=== PATIENT | female | born 2000 | race African-American/Black ===

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

== ENCOUNTER 2020-01-25 12:10 | Observation (INO) | payer OTHER, SELFPAY ==
[2020-01-25] VITALS (12 sets, daily range): BP systolic 88–107; BP diastolic 51–77; PULSE 80–110; RESP 14–18; TEMP 36.5–36.6; O2SAT 100; BMI 27.0
--- NOTE | 2020-01-25 13:24 | ED.BACK ---
HPI - Back Pain/Injury General Chief Complaint: Back Pain/Injury <Amairani Gilbert PA-C - Last Filed: 01/25/20 13:29> Stated Complaint: back pain <TONY Mcdonald Last Filed: 01/25/20 13:29> Time Seen by Provider: 01/25/20 12:30 <TONY Mcdonald Last Filed: 01/25/20 13:29> Source: patient <TONY Mcdonald Last Filed: 01/25/20 13:29> Mode of arrival: ambulatory <TONY Mcdonald Last Filed: 01/25/20 13:29> Limitations: no limitations <TONY Mcdonald Last Filed: 01/25/20 13:29> History of Present Illness HPI Narrative: This is a 19-year-old G1, P0 that is 21 weeks that presents to the emergency department for low back pain. Reports it has been intermittent in nature over the last week. Associated with pelvic cramping. Reports the pain in her back has been constant since last night. Has history of low-lying placenta and has been having cervical changes. She did have an ultrasound 5 days ago which showed that her cervix was stable. She has been taking progesterone. Denies fever, nausea, vomiting, vaginal bleeding, or dysuria. <TONY Mcdonald Last Filed: 01/25/20 13:29> Related Data Home Medications: Home Medications Medication Instructions Recorded Confirmed [id number] 250 1 tablet PO Q4-6H PRN 12/31/19 mg-250 mg-65 mg tablet <TONY Mcdonald Last Filed: 01/25/20 13:29> Allergies/Adverse Reactions: Allergies Allergy/AdvReac Type Severity Reaction Status Date / Time shellfish derived Allergy Unknown unknown Verified 01/25/20 12:19 <TONY Mcdonald Last Filed: 01/25/20 13:29> Review of Systems Review of Systems: Narrative: CONSTITUTIONAL: Denies fever GASTROINTESTINAL: Denies abdominal pain, nausea, vomiting GENITOURINARY: Denies dysuria or hematuria. MUSCULOSKELETAL: Reports back pain <Amairani Gilbert PA-C - Last Filed: 01/25/20 13:29> All systems reviewed & are unremarkable except as noted in HPI and below <Amairani Gilbert PA-C - Last Filed: 01/25/20 13:29> PMFSH Surgical History Surgical History: Surgical History No pertinent past surgical history <Amairani Gilbert PA-C - Last Filed: 01/25/20 13:29> Social History Social History: Social History Smoking status: Never smoker Alcohol intake: never Substance use: current Substance use type: marijuana Gender identity (if verbalized by the patient): Female <TONY Mcdonald Last Filed: 01/25/20 13:29> Exam Narrative: Exam Narrative: GENERAL: Well-appearing, well-nourished, and in no acute distress. HEAD: Normocephalic, atraumatic. EYES: EOMI. CHEST: Clear to auscultation. No respiratory distress. No wheezes rales or rhonchi HEART: Regular rate and rhythm. No murmur heard. Normal peripheral pulses. ABDOMEN: Gravid, nontender, normal active bowel sounds. EXTREMITIES: Normal range of motion. No edema. SKIN: Warm, dry, no rash. NEURO: No focal deficits. Alert and oriented x3. PSYCH: Normal mood and affect <Amairani Gilbert PA-C - Last Filed: 01/25/20 13:29> Course Vital Signs Vital signs: Vital Signs Temperature 36.5 C 01/25/20 12:16 Pulse Rate 87 01/25/20 12:16 Respiratory Rate 14 01/25/20 12:16 Blood Pressure 107/60 01/25/20 12:16 Pulse Oximetry 100 01/25/20 12:16 Temperature 36.5 C 01/25/20 12:16 Pulse Rate 100 01/25/20 14:45 Respiratory Rate 14 01/25/20 12:16 Blood Pressure 88/51 L 01/25/20 14:45 Pulse Oximetry 100 01/25/20 12:16 <TONY Mcdonald Last Filed: 01/25/20 13:29> Vital Signs Temperature 36.5 C 01/25/20 12:16 Pulse Rate 87 01/25/20 12:16 Respiratory Rate 14 01/25/20 12:16 Blood Pressure 107/60 01/25/20 12:16 Pulse Oximetry 100 01/25/20 12:16 Temperature 36.
[2020-01-25 15:04] LABS: Add Urine Microscopic? YES; Appearance Urine Cloudy (Clear); Bacteria Urine 1+ /hpf; Bilirubin Urine Negative (Negative); Blood Urine Negative (Negative); Color Urine Yellow (Yellow); Glucose Urine UA Negative (Negative); Ketones Urine 2+ mg/dL (Negative); Leukocyte Esterase Ur 3+ LEU/UL (NEGATIVE); Mucus Urine Rare /lpf; Nitrate Urine Positive (Negative); Protein Urine 1+ mg/dL (Negative); Specific Grav Ur 1.016 (1.001-1.035); Squamous Epithelial Cell Urine Occasional /hpf (Few); Urobilinogen Urine Negative mg/dL (<2.0); WBC Urine >75 /hpf (0-3)
[2020-01-25] MEDS: cefTRIAXone 1 GM VIAL IM (16:43)
[2020-01-25] MEDS: LIDOCAINE HCL 1% LOCAL INJ 20 ML VIAL 2.1 ML XX (16:43)
--- NOTE | 2020-01-27 09:10 | PM.OBTRLD ---
OB - Triage/Final Diagnosis Evaluation Laboratory results: Laboratory Tests 01/25/20 14:40 Urine Color Yellow Urine Appearance Cloudy H Urine pH 6.0 Ur Specific [place] 1.016 Urine Protein 1+ H Urine Glucose (UA) Negative Urine Ketones 2+ H Ur Blood (Man) Negative Urine Nitrate Positive Urine Bilirubin Negative Urine Urobilinogen Negative Ur Leukocyte Esterase 3+ H Urine RBC 3-5 H Urine WBC >75 H Ur Squamous Epith Cells Occasional Urine Bacteria 1+ H Urine Mucus Rare Final Diagnosis (1) UTI in : Code(s): O23.40 - Unspecified infection of urinary tract in , unspecified trimester Status: Acute
== END 2020-01-25 16:45 | disposition home or self-care (01) ==
LOC: ANHED 12:30 → ANHOBPP 14:39
PROVIDERS: Admitting Provider Student in an Organized Health Care Education/Training Program; Emergency Provider Emergency Medicine; PCP Student in an Organized Health Care Education/Training Program; Visit Provider Obstetrics & Gynecology
DX: O23.42 Unspecified infection of urinary tract in pregnancy, second trimester (principal); O99.89 Other specified diseases and conditions complicating pregnancy, childbirth and the puerperium; M54.9 Dorsalgia, unspecified; Z3A.21 21 weeks gestation of pregnancy
CPT/HCPCS: 81001; 87077; 87086; 87088; 87186; 96372; 99285; G0378; G0379; J0696

== ENCOUNTER 2020-03-08 13:09 | Outpatient (CLI) | payer OTHER, SELFPAY ==
[2020-03-08 13:36] LABS: Basophils Absolute Auto 0.1 K/mm3 (0.0-0.1); Basophils Percent Auto 0.8 % (0.2-1.2); Eosinophils Absolute Auto 0.1 K/mm3 (0-0.3); Eosinophils Percent Auto 1.3 % (0-4.4); Hematocrit 30.7 % (37.0-47.0); Hemoglobin 9.8 g/dL (12.0-15.0); Immature Granulocyte Absolute 0.19 K/mm3 (0.00-0.031); Immature Granulocyte Percent A 1.8 % (0-0.5); Lymphocytes Absolute Auto 1.74 K/mm3 (0.9-3.2); Lymphocytes Percent Auto 16.6 % (18.3-44.2); Mean Corpuscular HGB Conc 31.9 g/dl (32-36); Mean Corpuscular Hemoglobin 28.1 pg (26-34); Mean Platelet Volume 8.8 fl (7.4-10.4); Monocytes Absolute Auto 0.9 K/mm3 (0.1-0.6); Monocytes Percent Auto 8.1 % (2.6-8.5); Neutrophils Absolute Auto 7.5 K/mm3 (1.3-6.7); Neutrophils Percent Auto 71.4 % (45.5-73.1); Platelet Count Result 286 k/mm3 (150-375); Red Blood Count 3.49 M/mm3 (4.2-5.4); Red Cell Distribution Width 14.7 % (11.5-14.5); White Blood Count 10.5 K/mm3 (4.5-10.0)
[2020-03-08 14:32] LABS: Vitamin D 25 Hydroxy 21.7 ng/mL
[2020-03-08 15:04] LABS: Hepatitis C Virus Antibody Negative (Negative)
[2020-03-08 15:13] LABS: Glucose 1 Hour PP 50gm Dose 76 mg/dL
== END 2020-03-08 13:10 | disposition home or self-care (01) ==
LOC: ANHLAB 13:10
PROVIDERS: PCP Student in an Organized Health Care Education/Training Program; Visit Provider Student in an Organized Health Care Education/Training Program
DX: Z34.02 Encounter for supervision of normal first pregnancy, second trimester (principal); Z3A.00 Weeks of gestation of pregnancy not specified
CPT/HCPCS: 36415; 82306; 82947; 85025; 86803

== ENCOUNTER 2020-03-20 05:08 | Emergency (ER) | payer OTHER, SELFPAY ==
[2020-03-20 05:21] VITALS: BP 120/77; PULSE 82; RESP 18; TEMP 36.1; O2SAT 100
--- NOTE | 2020-03-20 05:44 | ED.NAVMDI ---
HPI - Nausea/Vomiting/Diarrhea General Chief complaint: Nausea/Vomiting/Diarrhea Stated complaint: vomiting, back pain, 29 weeks preg Time Seen by Provider: 03/20/20 05:24 Source: patient Mode of arrival: ambulatory Limitations: no limitations History of Present Illness HPI Narrative: This patient is a 19 year old female 29 weeks GA who presents for evaluation of nausea and vomiting. She reports she ate chicken and broccoli at 10 30 pm. Around midnight reports she had a sensation that some thing was stuck in her esophagus, so she drank some water. She reports at 3 am she developed nausea and vomiting. She reports initially she had emesis with food. Shortly afterward, her emesis was brown so she came to the ER. This occurred at 3 am. She states she drank some water . She denies abdominal pain, fever or chills. She denies any vaginal bleeding. She does reports having an issue with heart burn throughout her HEr OBGYN is Dr. Zhao. Related Data Home Medications Medication Instructions Recorded Confirmed [id number] 250 1 tablet PO Q4-6H PRN 12/31/19 mg-250 mg-65 mg tablet Allergies Allergy/AdvReac Type Severity Reaction Status Date / Time shellfish derived Allergy Unknown unknown Verified 03/08/20 12:49 Review of Systems Review of Systems: All systems reviewed & are unremarkable except as noted in HPI and below Constitutional: Constitutional: Denies chills and Denies fever(s) Cardiovascular: Cardiovascular: Denies chest pain Respiratory: Respiratory: Denies dyspnea Gastrointestinal: Gastrointestinal: Denies abdominal pain, Denies constipation, Denies diarrhea, Reports nausea and Reports vomiting Genitourinary: Genitourinary: Denies hematuria, Denies dysuria and Reports flank pain PMFSH Past Medical History Medical History Asthma Healthy female adult UTI in Surgical History Surgical History No pertinent past surgical history Social History Social History Smoking status: Never smoker Alcohol intake: never Substance use: current Substance use type: marijuana Gender identity (if verbalized by the patient): Female Exam Const: General: no acute distress and alert Orientation/consciousness: patient oriented x3 HENMT: Face and sinus: face symmetric Chest: Chest palpation & inspection: normal inspection of the chest Resp: Effort & Inspection: normal respiratory effort and no retractions Auscultation: clear to auscultation bilaterally Cardio: Rate: regular rate Rhythm: regular rhythm Heart sounds: no murmurs GI: GI Palp: Yes Soft to palpation, No Tenderness to palpation present (GI), No Guarding due to palpation present (GI) and No Rigid due to palpation Other: gravid Skin: General skin exam: normal color Rashes: no rashes Neuro: General: patient oriented x3 and moves all extremities Course Reevaluation(s) Reevaluation #1: PAtient states she does not have nausea any more. She is able to drink without nausea now. I discussed return precautions. She will starting taking omeprazole as recommended by Dr. Suero Date: 03/20/20 Time: 06:47 Consultations Consultation #1: I Discussed case with DR. Suero. She agrees patient can be discharge home. I Discussed had episode of coffee ground emesis that has resolved. She states patient can take OTC omeprazole. Date: 03/20/20 Time: 06:20 Vital Signs Vital signs: Vital Signs Temperature 97 F L 03/20/20 05:21 Pulse Rate 82 03/20/20 05:21 Respiratory Rate 18 03/20/20 05:21 Blood Pressure 120/77 03/20/20 05:21 Pulse Oximetry 100 03/20/20 05:21 Temperature 97 F L 03/20/20 05:21 Pulse Rate 80 03/20/20 06:10 Respiratory Rate 16 03/20/20 06:10 Blood Pressure 119/75 03/20/20 06:10 Pulse Oximetr
[2020-03-20] MEDS: PANTOPRAZOLE SODIUM IV 40 MG VIAL IV PUSH (05:55)
[2020-03-20] MEDS: ONDANSETRON INJ 4 MG/2 ML VIAL IV PUSH (05:55)
[2020-03-20 06:10] VITALS: BP 119/75; PULSE 80; RESP 16; O2SAT 99
[2020-03-20 06:19] LABS: Basophils Absolute Auto 0.1 K/mm3 (0.0-0.1); Basophils Percent Auto 0.9 % (0.2-1.2); Eosinophils Absolute Auto 0.2 K/mm3 (0-0.3); Eosinophils Percent Auto 1.4 % (0-4.4); Hematocrit 30.7 % (37.0-47.0); Hemoglobin 10.1 g/dL (12.0-15.0); Immature Granulocyte Percent A 1.7 % (0-0.5); Lymphocytes Absolute Auto 2.27 K/mm3 (0.9-3.2); Lymphocytes Percent Auto 19.4 % (18.3-44.2); Mean Corpuscular HGB Conc 32.9 g/dl (32-36); Mean Corpuscular Hemoglobin 28.9 pg (26-34); Mean Platelet Volume 9.1 fl (7.4-10.4); Monocytes Absolute Auto 0.8 K/mm3 (0.1-0.6); Monocytes Percent Auto 7.2 % (2.6-8.5); Neutrophils Absolute Auto 8.2 K/mm3 (1.3-6.7); Neutrophils Percent Auto 69.4 % (45.5-73.1); Platelet Count Result 279 k/mm3 (150-375); Red Blood Count 3.49 M/mm3 (4.2-5.4); Red Cell Distribution Width 14.8 % (11.5-14.5); White Blood Count 11.7 K/mm3 (4.5-10.0)
[2020-03-20 06:23] LABS: Add Urine Microscopic? YES; Appearance Urine Clear (Clear); Bacteria Urine Trace /hpf; Bilirubin Urine Negative (Negative); Blood Urine Negative (Negative); Color Urine Yellow (Yellow); Glucose Urine UA Negative (Negative); Ketones Urine Negative (Negative); Leukocyte Esterase Ur Trace LEU/UL (Negative); Mucus Urine Rare /lpf; Nitrate Urine Negative (Negative); Protein Urine Negative (Negative); RBC Urine 0-2 /hpf (0-2); Specific Grav Ur 1.017 (1.001-1.035); Squamous Epithelial Cell Urine Few /hpf (Few); Urobilinogen Urine Negative mg/dL (<2.0)
[2020-03-20 06:31] LABS: Alanine Aminotransferase 19 U/L (4-35); Albumin Level 3.7 g/dL (3.7-5.6); Alkaline Phosphatase 88 U/L (45-116); Anion Gap 6 mmol/L (8-16); Aspartate Amino Transferase 24 U/L (14-36); Bilirubin,Total 0.1 mg/dL (0.2-1.3); Blood Urea Nitrogen 8 mg/dL (8-21); Calcium 9.1 mg/dL (8.9-10.7); Carbon Dioxide 27 mmol/L (22-30); Chloride 105 mmol/L (98-107); Estimated CRCL calculation 129 ml/min; Estimated Glomerular Filt Rate > 60; Glucose 77 mg/dL (65-105); Potassium 3.8 mmol/L (3.4-5.0); Sodium 138 mmol/L (134-143)
[2020-03-20 07:08] VITALS: BP 127/77; PULSE 82; RESP 16; O2SAT 99
== END 2020-03-20 07:10 | disposition home or self-care (01) ==
PROVIDERS: Emergency Provider General Practice; PCP Student in an Organized Health Care Education/Training Program
DX: O21.2 Late vomiting of pregnancy (principal); Z3A.29 29 weeks gestation of pregnancy
CPT/HCPCS: 36415; 80048; 80076; 81001; 85025; 96374; 96375; 99284; C9113; J2405

== ENCOUNTER 2020-04-08 14:03 | Outpatient (CLI) | payer OTHER, SELFPAY ==
[2020-04-08 14:42] LABS: Basophils Absolute Auto 0.1 K/mm3 (0.0-0.1); Basophils Percent Auto 0.7 % (0.2-1.2); Eosinophils Absolute Auto 0.2 K/mm3 (0-0.3); Eosinophils Percent Auto 1.3 % (0-4.4); Hematocrit 32.1 % (37.0-47.0); Hemoglobin 10.2 g/dL (12.0-15.0); Immature Granulocyte Absolute 0.22 K/mm3 (0.00-0.031); Lymphocytes Percent Auto 17.8 % (18.3-44.2); Mean Corpuscular HGB Conc 31.8 g/dl (32-36); Mean Corpuscular Hemoglobin 28.3 pg (26-34); Mean Corpuscular Volume 89.2 fl (80-100); Mean Platelet Volume 8.6 fl (7.4-10.4); Monocytes Absolute Auto 0.9 K/mm3 (0.1-0.6); Monocytes Percent Auto 7.8 % (2.6-8.5); Neutrophils Absolute Auto 7.9 K/mm3 (1.3-6.7); Neutrophils Percent Auto 70.4 % (45.5-73.1); Platelet Count Result 266 k/mm3 (150-375); Red Cell Distribution Width 14.9 % (11.5-14.5); White Blood Count 11.3 K/mm3 (4.5-10.0)
[2020-04-08 15:38] LABS: HIV 1/2 Ab P24 Ag Result Negative (Negative)
[2020-04-11 11:55] LABS: Rapid Plasma Reagin Non-Reactive (NonReactive)
== END 2020-04-08 14:04 | disposition home or self-care (01) ==
LOC: ANHLAB 14:05
PROVIDERS: PCP Student in an Organized Health Care Education/Training Program; Visit Provider Student in an Organized Health Care Education/Training Program
DX: Z34.03 Encounter for supervision of normal first pregnancy, third trimester (principal)
CPT/HCPCS: 36415; 85025; 86592; 86703; G0432

== ENCOUNTER 2020-05-19 15:24 | Inpatient (IN) | payer OTHER, SELFPAY ==
[2020-05-19] VITALS (80 sets, daily range): BP systolic 96–174; BP diastolic 38–142; PULSE 25–214; TEMP 36.4–36.5; O2SAT 65–100; BMI 30.2
--- NOTE | 2020-05-19 16:28 | LDADM ---
This patient, Alon Deluna, was admitted to Labor/Delivery/Recovery [facility] on 05/19/20 at 15:24. Plans for labor, pain management and were discussed with patient. Patient/family oriented to hospital policies and general routines including ID bracelet, bed and alarms, visiting hours, pain management, procedures, bathroom and other care routines, personal items, smoking policy, room service/diet and guest tray routines, security routines, call light, and visiting hours. Patient/Family are encouraged to report perceived risks to care and to ask questions if they do not understand what they are told or what they should do. See [facility] for further documentation.
[2020-05-19] MEDS: LACTATED RINGERS 1,000 ML 125 ML IV CONT ×2 (16:53→20:00)
[2020-05-19] MEDS: AMPICILLIN 2 GM/NS 100 ML 2 GM/100 ML BAG IVPB (16:54)
[2020-05-19 16:56] LABS: Basophils Absolute Auto 0.1 K/mm3 (0.0-0.1); Basophils Percent Auto 0.7 % (0.2-1.2); Eosinophils Absolute Auto 0.1 K/mm3 (0-0.3); Eosinophils Percent Auto 1.2 % (0-4.4); Hematocrit 33.3 % (37.0-47.0); Hemoglobin 10.8 g/dL (12.0-15.0); Immature Granulocyte Percent A 0.8 % (0-0.5); Immature Platelet Fraction Pct 3.2 % (0.9-11.2); Lymphocytes Absolute Auto 1.63 K/mm3 (0.9-3.2); Lymphocytes Percent Auto 13.4 % (18.3-44.2); Mean Corpuscular HGB Conc 32.4 g/dl (32-36); Mean Corpuscular Hemoglobin 28.2 pg (26-34); Mean Corpuscular Volume 86.9 fl (80-100); Mean Platelet Volume 10.6 fl (7.4-10.4); Monocytes Absolute Auto 0.9 K/mm3 (0.1-0.6); Monocytes Percent Auto 7.6 % (2.6-8.5); Neutrophils Absolute Auto 9.3 K/mm3 (1.3-6.7); Neutrophils Percent Auto 76.3 % (45.5-73.1); Platelet Count Result 267 k/mm3 (150-375); Red Blood Count 3.83 M/mm3 (4.2-5.4); Red Cell Distribution Width 14.9 % (11.5-14.5); White Blood Count 12.2 K/mm3 (4.5-10.0)
--- NOTE | 2020-05-19 17:29 | PM.IMHP ---
H&P: HPI History of Present Illness Date/Time: 05/19/20 17:29 The patient is a 20-year-old with LMP 08/27/19. She is currently 38w gestation with an SAMIA 06/02/20. Patient is dated by an US on 10/23/19 at 8w4d. At approximately 2:30 p.m., patient noticed leakage of fluid. She reports onset of contractions following leakage of fluid. She presented to Labor and delivery for further evaluation and was noted to be grossly ruptured, clear fluid noted. Cervical exam at presentation was approximately 1-80/-3. Patient denies any vaginal bleeding and reports good movement. Chief complaint: labor Narrative: Alon Deluna is a 20 year old female Review of Systems Review of Systems: All systems reviewed & are unremarkable except as noted in HPI and below Constitutional: Constitutional: Reports as per HPI, Reports no additional constitutional complaints, Denies chills, Denies fever(s), Denies headache(s) and Denies night sweats Eyes: Eyes: Reports as per HPI and Reports no additional eye complaints ENT: Reports system reviewed and no additional complaints, except as documented, Reports as per HPI, Reports Normal hearing present and Denies headache(s) Cardiovascular: Cardiovascular: Reports as per HPI, Reports no additional cardiovascular complaints, Denies chest pain and Denies dyspnea Respiratory: Respiratory: Reports as per HPI, Reports no additional respiratory complaints, Denies cough and Denies dyspnea Gastrointestinal: Gastrointestinal: Reports as per HPI, Reports no additional gastrointestinal complaints, Denies abdominal pain, Denies change in bowel habits, Denies change in stool character, Denies nausea and Denies vomiting Genitourinary: Genitourinary: Reports no additional female genitourinary complaints, Reports as per HPI, Denies abnormal vaginal bleeding, Denies genital lesions, Denies hot flashes, Denies dyspareunia, Denies pelvic pain, Denies sexual dysfunction, Denies urinary incontinence, Denies vaginal discharge, Denies vaginal dryness and Denies vaginal odor Musculoskeletal: Musculoskeletal: Reports no additional musculoskeletal complaints and Reports as per HPI Integumentary/Breasts: Skin/Breast: Reports system reviewed and no additional complaints, except as docu, Reports as per HPI, Denies breast pain and Denies nipple discharge Neurologic: Reports system reviewed and no additional complaints, except as documented, Reports as per HPI, Reports Normal hearing present and Denies headache(s) Psychiatric: Psychiatric: Reports no additional psychiatric complaints, Reports as per HPI, Denies anxiety and Denies depression Endocrine: Endocrine: Reports no additional endocrine complaints and Reports as per HPI Hematologic/Lymphatic: Hematologic/Lymphatic: Reports no additional hematologic/lymphatic complaints and Reports as per HPI Allergic/Immunologic: Allergic/Immunologic: Reports no additional allergic/immunologic complaints and Reports as per HPI PMFSH Past Medical History Medical History (Updated 05/19/20 @ 17:35 by Roseann Zhao MD) Asthma Healthy female adult UTI in Surgical History Surgical History No pertinent past surgical history Social History Social History Smoking status: Never smoker Alcohol intake: never Substance use: never Substance use type: marijuana Gender identity (if verbalized by the patient): Female Spiritual care concerns: No Meds Home Medications and Allergies Home Medications Medication Instructions Recorded Confirmed Type jdseyqa-xgdawdibzggdm-nejiypmf 250 1 tablet PO Q4-6H PRN 12/31/19 History mg-250 mg-65 mg tablet phzyzokwhe-bpqjsylrcztef-pbtqaxok 1 cap PO Q8H PRN #20 cap 12/31/19 12/31/19 Rx 50 mg-300 mg-40 mg capsule nitrofurantoin monohyd/m-cryst 100 mg PO Q12H #14 cap 01/25/20 Rx [Macrobid] sulfamethoxazole 800 1 tablet PO Q
--- NOTE | 2020-05-19 17:36 | WPDHPUPDATE1 ---
History and Physical Update Update Date/Time: 05/19/20 17:36 History and Physical has been reviewed, including an updated exam of the patient. There are NO changes in the patient's condition. Risks, benefits, and alternatives have been discussed and questions answered. Patient agrees to proceed with procedure.
[2020-05-19] MEDS: fentaNYL CITRATE INJ (*CRX) 100 MCG/2 ML VIAL IV PUSH (18:12)
--- NOTE | 2020-05-19 19:26 | WPDANESEPPF ---
Anes - Initial Pre Proc Eval Procedure: labor epidural Date/Time: 05/19/20 19:26 Surgeon: Ben Kebede MD Pre Op Diagnosis: labor pain Pre Op Diagnosis: labor Patient Data Age: 20 Gender: F Height: 1.7 m Weight: 87.6 kg Last Vital Signs Temp 36.4 C 05/19/20 16:58 Pulse 89 05/19/20 19:25 BP 114/66 05/19/20 19:25 Pulse Ox 100 05/19/20 19:24 Allergies Allergy/AdvReac Type Severity Reaction Status Date / Time shellfish derived Allergy Unknown unknown Verified 05/19/20 18:14 Home Medications Medication Instructions Recorded Confirmed Type kzshmtx-cofywrgvhhuwy-hxprhddm 250 1 tablet PO Q4-6H PRN 12/31/19 05/19/20 History mg-250 mg-65 mg tablet nsrwyhlbod-jhnaetocrgyhh-redthjds 1 cap PO Q8H PRN #20 cap 12/31/19 05/19/20 Rx 50 mg-300 mg-40 mg capsule omeprazole 20 mg PO BID #30 tablet 03/20/20 05/19/20 Rx vitamin with calcium See Rx Instructions .ROUTE 04/04/20 05/19/20 Rx no.72-iron 27 mg-folic acid 1 mg .COMPLEX #30 tablet tablet cholecalciferol (vitamin D3) 50 See Rx Instructions .ROUTE 05/04/20 05/19/20 Rx mcg (2,000 unit) capsule .COMPLEX #30 cap ferrous sulfate 325 mg (65 mg See Rx Instructions .ROUTE 05/04/20 05/19/20 Rx iron) tablet .COMPLEX #60 tablet Laboratory Tests 05/19/20 05/19/20 05/19/20 16:46 16:46 16:46 WBC 12.2 K/mm3 H K/mm3 (4.5-10.0) RBC 3.83 M/mm3 L M/mm3 (4.2-5.4) Hgb 10.8 g/dL L g/dL (12.0-15.0) Hct 33.3 % L % (37.0-47.0) MCV 86.9 fl fl (80-100) MCH 28.2 pg pg (26-34) MCHC 32.4 g/dl g/dl (32-36) RDW 14.9 % H % (11.5-14.5) Plt Count 267 k/mm3 k/mm3 (150-375) MPV 10.6 fl H fl (7.4-10.4) Immature Gran % (Auto) 0.8 % H % (0-0.5) Neut % (Auto) 76.3 % H % (45.5-73.1) Lymph % (Auto) 13.4 % L % (18.3-44.2) [place] % (Auto) 7.6 % % (2.6-8.5) Eos % (Auto) 1.2 % % (0-4.4) Baso % (Auto) 0.7 % % (0.2-1.2) Lymph # (Auto) 1.63 K/mm3 K/mm3 (0.9-3.2) [place] # (Auto) 0.9 K/mm3 H K/mm3 (0.1-0.6) Eos # (Auto) 0.1 K/mm3 K/mm3 (0-0.3) Baso # (Auto) 0.1 K/mm3 K/mm3 (0.0-0.1) Abs Immat Gran (auto) 0.10 K/mm3 H K/mm3 (0.00-0.031) Absolute Neuts (auto) 9.3 K/mm3 H K/mm3 (1.3-6.7) Absolute Nucleated RBC 0.0 K/mm3 K/mm3 (0.0-0.012) Nucleated RBC % 0.0 % % (0.0-0.2) % Immature Plt Fraction 3.2 % % (0.9-11.2) RPR Pending Hep Bs Antigen Rubella IgG Antibody Pending Blood Type Antibody Screen 05/19/20 05/19/20 16:46 17:34 WBC RBC Hgb Hct MCV MCH MCHC RDW Plt Count MPV Immature Gran % (Auto) Neut % (Auto) Lymph % (Auto) [place] % (Auto) Eos % (Auto) Baso % (Auto) Lymph # (Auto) [place] # (Auto) Eos # (Auto) Baso # (Auto) Abs Immat Gran (auto) Absolute Neuts (auto) Absolute Nucleated RBC Nucleated RBC % % Immature Plt Fraction RPR Hep Bs Antigen Pending Rubella IgG Antibody Blood Type A Positive Antibody Screen Negative Patient hx anesthesia problems: none Family hx anesthesia problems: none PMFSH Past Medical History Medical History (Updated 05/19/20 @ 17:35 by Roseann Zhao MD) Asthma Healthy female adult UTI in Surgical History Surgical History No pertinent past surgical history Social History Social History Smoking status: Never smoker Alcohol intake: never Substance use: never Substance use type:
[2020-05-19 20:00] LABS: Hepatitis B Surface Antigen Negative (Negative)
[2020-05-19 20:15] LABS: Rubella IgG Antibody > 120.0 IU/ML
[2020-05-19] MEDS: OXYTOCIN 30 UNITS/NS 500 ML 30 UNITS/500 ML BAG 999 UNITS IV CONT (20:19)
[2020-05-19] MEDS: OXYTOCIN 30 UNITS/NS 500 ML 30 UNITS/500 ML BAG 125 UNITS IV CONT (20:51)
--- NOTE | 2020-05-19 21:28 | P.PCNOB_ITS ---
OB - Delivery Note Procedure Delivery date: 05/19/20 Procedure: The patient is a 20-year-old now who presented to labor and delivery on the afternoon of 05/19/2020 with complaints of spontaneous rupture of membranes. Patient was noted to be grossly ruptured upon arrival. Clear amniotic fluid was noted. The patient reported onset of contractions shortly after leakage of fluid and progressed spontaneously into active labor on own. Initial cervical exam was approximately 2 cm dilated. The patient was started on ampicillin for GBS prophylaxis. She continued to make progressive cervical change. She became uncomfortable and requested an epidural for pain management, which was placed without difficulty. Patient was noted to be fully dilated at 7:40 p.m. She was encouraged to push and found to be pushing well. Patient was prepped and draped for delivery. At 8:16 p.m., head was delivered atraumatically and without difficulty in ALEX presentation. A compound presentation was noted as an infant hand delivered alongside the left side of face. Occiput restituted to maternal right side. With subsequent push, the infant's neck, shoulders, and rest of body delivered without difficulty. The infant was crying spontaneously. Infant's nose and mouth were suctioned bulb suction. The infant was placed on maternal abdomen and care was assumed by awaiting nursing staff. Delayed cord clamping was performed for approximately 45 seconds. The cord was clamped and cut. A segment of cord was collected for cord gases. Brisk bleeding was noted and the placenta was delivered prior to collection of cord blood. Placenta was delivered spontaneously and intact. Profuse bleeding ensued. Uterine fundus was noted to be firm with bimanual massage. Bleeding was thought to be due to lacerations, however, visualization was limited. When adequate visualization was achieved, multiple blood vessels were noted to be briskly bleeding from the superior vaginal wall, bilateral periurethral area extending to bilateral labia, as well as perineum (1st degree). Hemostasis was eventually achieved with 2-0 and 3-0 Vicryl. Straight catheterization was performed and clear urine was noted. Estimated blood loss for entire delivery was 1683 cc. was a live-born male , apgars 9 and 9, weighing 6 lb 10 oz. Patient doing well after delivery, however, close monitoring of patient to continue. Intrapartal events: Bleeding Delivery monitor: external FHT and external uterine Route of delivery: Laceration Description: Periurethral (bilateral), Perineal - 1st Degree, Vaginal - 1st Degree (superior vaginal wall) and Labial (bilateral) Delivery repair: vicryl (2-0 and 3-0 vicryl) Specimen: No Quantitative Blood Loss: 1,683 Anesthesia type: Epidural Disposition: floor Complications: hemorrhage [place] Baby Date of : 05/19/20 Time of : 20:16 Weeks of gestation at delivery: 38 gender: Male Weight (pounds): 6 Weight (ounces): 10 presentation: compound ( hand delivered alongside face) position: Right Occiput Anterior Placenta delivery description: Spontaneous cord vessel description: 3 Vessels, Clamped/Cut and Delayed Cord Clamping (approx. 45 sec.) score one minute: 9 score five minutes: 9
[2020-05-19] MEDS: BENZOCAINE 20% AER SPR (*SP) 56 GM CAN 1 SPRAY TOPICAL (23:38)
[2020-05-19] MEDS: IBUPROFEN 600 MG TABLET PO (23:38)
[2020-05-19] MEDS: WITCH HAZEL 40 PADS 1 PAD TOPICAL (23:38)
[2020-05-20 00:25] VITALS: BP 106/61; PULSE 97; RESP 16; TEMP 36.8; O2SAT 99
--- NOTE | 2020-05-20 00:25 | OBPPTRN ---
Patient transferred to post room #292 via wheelchair. Support person present. Oriented to unit, room, information board, rooming in, admission packet and security measures. Patient verbalizes understanding.
[2020-05-20] MEDS: ACETAMINOPHEN 325 MG TABLET 650 MG PO ×4 (02:03→21:13)
[2020-05-20 02:10] LABS: Hematocrit 25.7 % (37.0-47.0); Hemoglobin 8.4 g/dL (12.0-15.0); Mean Corpuscular HGB Conc 32.7 g/dl (32-36); Mean Corpuscular Hemoglobin 28.4 pg (26-34); Mean Corpuscular Volume 86.8 fl (80-100); Mean Platelet Volume 9.1 fl (7.4-10.4); Platelet Count Result 232 k/mm3 (150-375); Red Blood Count 2.96 M/mm3 (4.2-5.4); Red Cell Distribution Width 14.6 % (11.5-14.5); White Blood Count 18.2 K/mm3 (4.5-10.0)
[2020-05-20] MEDS: IBUPROFEN 600 MG TABLET PO ×4 (05:09→21:13)
[2020-05-20 05:33] LABS: Hematocrit 23.6 % (37.0-47.0); Hemoglobin 7.7 g/dL (12.0-15.0)
[2020-05-20 06:51] LABS: Rapid Plasma Reagin Non-Reactive (NonReactive)
--- NOTE | 2020-05-20 07:40 | PC.NURSE ---
PT introductions made and plan of care discussed per post , pain management, breast feeding, daily care activities. PT verbalized understanding of such care.
--- NOTE | 2020-05-20 08:14 | WPDANLDPN2 ---
Anes-Prog Note L&D Date/Time: 05/20/20 08:14 Comfortable throughout: labor and delivery Neuraxial method: epidural Epidural/Spinal procedure site: clean & non-tender Neuro status: Neuro function grossly intact. Cardiovascular status: normal Respiratory status: normal Airway patency: baseline Mental status: baseline Post-Op hydration status: normal Vital Signs: Last Vital Signs Temp 36.8 C 05/20/20 00:25 Pulse 97 05/20/20 00:25 Resp 16 05/20/20 00:25 BP 106/61 05/20/20 00:25 Pulse Ox 99 05/20/20 00:25 Pain score (VAS): 0 I/O: Intake & Output 05/19/20 05/20/20 05/20/20 23:59 07:59 15:59 Intake Total 1600 1400 Output Total 450 800 Balance 1150 600 Post-procedural complaints: none Patient feedback: Patient satisfied with anesthetic care.
[2020-05-20 08:20] VITALS: BP 109/75; PULSE 107; RESP 18; TEMP 37.3; O2SAT 100
--- NOTE | 2020-05-20 09:06 | PM.OBPNVD ---
OB - PN: Subj Subjective Date/time seen: 05/20/20 09:06 Patient doing well this morning. Reports minimal abdominal pain/cramping, alleviated with medication. Also reports mild headache, tolerable. Denies any dizziness, chest pain, shortness of breath, nausea, or vomiting. Tolerating p.o. diet. Minimal lochia. Ambulating without difficulty. Voiding without difficulty. OB - PN: Obj Data Labs CBC & Chem 7: 05/20/20 05:06 Labs: Laboratory Results - last 24 hr 05/19/20 05/19/20 05/19/20 16:46 16:46 16:46 WBC 12.2 H RBC 3.83 L Hgb 10.8 L Hct 33.3 L MCV 86.9 MCH 28.2 MCHC 32.4 RDW 14.9 H Plt Count 267 MPV 10.6 H Immature Gran % (Auto) 0.8 H Neut % (Auto) 76.3 H Lymph % (Auto) 13.4 L [place] % (Auto) 7.6 Eos % (Auto) 1.2 Baso % (Auto) 0.7 Lymph # (Auto) 1.63 [place] # (Auto) 0.9 H Eos # (Auto) 0.1 Baso # (Auto) 0.1 Abs Immat Gran (auto) 0.10 H Absolute Neuts (auto) 9.3 H Absolute Nucleated RBC 0.0 Nucleated RBC % 0.0 % Immature Plt Fraction 3.2 RPR Non-reactive Hep Bs Antigen Rubella IgG Antibody > 120.0 Blood Type Antibody Screen 05/19/20 05/19/20 05/20/20 16:46 17:34 02:01 WBC 18.2 H RBC 2.96 L Hgb 8.4 L Hct 25.7 L MCV 86.8 MCH 28.4 MCHC 32.7 RDW 14.6 H Plt Count 232 MPV 9.1 Immature Gran % (Auto) Neut % (Auto) Lymph % (Auto) [place] % (Auto) Eos % (Auto) Baso % (Auto) Lymph # (Auto) [place] # (Auto) Eos # (Auto) Baso # (Auto) Abs Immat Gran (auto) Absolute Neuts (auto) Absolute Nucleated RBC Nucleated RBC % % Immature Plt Fraction RPR Hep Bs Antigen Negative Rubella IgG Antibody Blood Type A Positive Antibody Screen Negative 05/20/20 05:06 WBC RBC Hgb 7.7 L Hct 23.6 L MCV MCH MCHC RDW Plt Count MPV Immature Gran % (Auto) Neut % (Auto) Lymph % (Auto) [place] % (Auto) Eos % (Auto) Baso % (Auto) Lymph # (Auto) [place] # (Auto) Eos # (Auto) Baso # (Auto) Abs Immat Gran (auto) Absolute Neuts (auto) Absolute Nucleated RBC Nucleated RBC % % Immature Plt Fraction RPR Hep Bs Antigen Rubella IgG Antibody Blood Type Antibody Screen OB - PN A/P Assessment and Plan (1) Normal spontaneous vaginal delivery: Code(s): O80 - Encounter for full-term uncomplicated delivery Status: Acute Assessment and Plan: PPD#1 doing well continue routine care anticipate dc home tomorrow (2) Anemia: Code(s): D64.9 - Anemia, unspecified Status: Acute Assessment and Plan: pt with significant bleeding from lacerations Hgb currently 7.7 pt currently asymptomatic will continue to monitor throughout the day continue iron supplementation Time Spent With Patient Time: Total time spent is greater than 50% in coordination of care (as documented) at patient's floor/unit and/or counseling patient: Exam Const: General: cooperative, healthy appearing, comfortable and no acute distress GI: GI Palp: Yes Soft to palpation and No Tenderness to palpation present (GI) Other: fundus below umbilicus Extrem: Right lower extremity: no edema Left lower extremity: no edema Other: no calf tenderness
[2020-05-20 10:00] VITALS: PULSE 107; RESP 18; O2SAT 100
[2020-05-20] MEDS: POLYSACCHARIDE IRON COMPLEX 150 MG CAPSULE PO ×2 (10:01→15:38)
[2020-05-20] MEDS: DOCUSATE SODIUM 100 MG CAPSULE PO ×2 (10:01→15:38)
[2020-05-20] MEDS: MULTIVIT/MIN/PREN/FOL AC/IRON TABLET 1 TAB PO (10:01)
[2020-05-20] MEDS: PANTOPRAZOLE SOD SESQUIHYDRATE 20 MG TAB PO (11:32)
[2020-05-20] MEDS: LANOLIN (LANSINOH) 7.5 GM CREAM 1 APPLIC TOPICAL (12:08)
--- NOTE | 2020-05-20 13:30 | PC.NURSE ---
Consult with pt., mother states she is resting and request LC return later for assist with feeding and pump use. Requested mother call out when is ready for feeding. Reviewed RN or LC would like to assess infant feeding due to shield use.
--- NOTE | 2020-05-20 15:00 | PC.NURSE ---
Breast pump provided due to ineffective feeding/nipple shield use. Instructions given on breast pump care and usage, pumping schedule, nipple care, and collection and storage of breast milk. Encouraged mjae-oc-hgze, breast massage and manual expression to stimulate supply. Pumping log provided and reviewed. Assessed patient for correct flange size, placement and draw. Patient verbalizes and demonstrates understanding of instructions.
[2020-05-20 18:45] VITALS: BP 110/76; PULSE 85; RESP 18; TEMP 36.7; O2SAT 100
[2020-05-21 07:00] VITALS: BP 124/72; PULSE 84; RESP 16; TEMP 36.9
[2020-05-21] MEDS: DOCUSATE SODIUM 100 MG CAPSULE PO (07:47)
[2020-05-21] MEDS: MULTIVIT/MIN/PREN/FOL AC/IRON TABLET 1 TAB PO (07:47)
[2020-05-21] MEDS: POLYSACCHARIDE IRON COMPLEX 150 MG CAPSULE PO (07:47)
[2020-05-21] MEDS: IBUPROFEN 600 MG TABLET PO (07:47)
--- NOTE | 2020-05-21 12:27 | PM.OBPNVD ---
OB - PN: Subj Subjective Date/time seen: 05/21/20 12:27 Patient comments: no complaints, pain well controlled and other (Lochia similar to menses) [place] baby status: doing well OB - PN: Obj Data Labs CBC & Chem 7: 05/20/20 05:06 OB - PN A/P Plan day: 2 (s/p vaginal delivery, doing well) Plan: routine care, discharge home and other (Follow up in office in 4 weeks) Comments: Anemia - asymptomatic. Lochia similar to menses. Take daily PNV + iron supplement Time Spent With Patient Time: Total time spent is greater than 50% in coordination of care (as documented) at patient's floor/unit and/or counseling patient: Time with patient: less than 15 minutes Exam Const: General: no acute distress GI: Inspection: other (Fundus firm and nontender below umbilicus) GI Palp: Yes Soft to palpation and No Tenderness to palpation present (GI) Extrem: General: no edema
[2020-05-23 10:13] VITALS: BP 130/82; PULSE 72; RESP 20; TEMP 37; O2SAT 100
--- NOTE | 2020-05-27 11:50 | PM.OBDSVD ---
DS: Admitting Diagnosis Admitting Diagnosis Admitting Diagnosis: labor DS: Discharge Diagnosis Discharge Diagnosis (1) Normal spontaneous vaginal delivery: Code(s): O80 - Encounter for full-term uncomplicated delivery Status: Acute OB - DS: Summary OB Procedures : None OB Procedures Intrapartum: Spontaneous Vag Delivery OB Procedures: : None Peripartum Data Infant Delivery Method: Natural Vaginal complications: none Status at Discharge Functional status at discharge: independent ambulation Overall status at discharge: patient is progressing back to baseline Time Spent with Patient Time attestation: Total time spent providing and/or coordinating discharge services: Time spent: Less than 30 minutes Discharge Plan Discharge Attending physician on discharge: Roseann Zhao Consulting providers: Brett Simon Discharging Clinician: Abigail Colbert Patient Disposition: Home, Self-Care Activity: may shower and pelvic rest Diet: regular Discharge Instructions: Education: Mom and Baby Guide Given to: Mother Follow-Up: Call your delivering provider's office for an appointment to be seen in: 1 Week Mom and baby should come to the [facility] for the follow-up appointment. Appointment Date/Time: May 23, 2020 at 10:00 am What to expect at your follow-up visit: Blood Pressure Check Physical Assessment Call [phone] if you are unable to keep your appointment time. BREAST CARE: * Wear a snug supportive bra. * For engorgement discomfort: Breast Feeding: * Apply warm moist washcloths * Express milk as needed to relieve engorgement * Wear loose clothing * For sore nipples: * Identify correct latch-on * Apply warm moist washcloths before and after nursing * Air dry nipples after nursing * May apply Lansinoh cream to nipples EPISIOTOMY/PERINEAL CARE: * Until bleeding stops, use your chantelle bottle after urinating * Change your pad frequently throughout the day * You may take sitz baths several times a day (fill your bathtub with warm water and soak for 20 minutes.) Do NOT bathe in the water * No tub baths until seen by your physician - You may shower ACTIVITY: * Rest as much as possible. * Do not exercise or lift anything heavier than your baby (such as laundry or other children.) * Avoid stairs or driving as much as possible. * Do not put anything into the vagina. No douching, tampons, or sexual activity until seen by physician. NOTIFY PHYSICIAN IF YOU HAVE ANY QUESTIONS OR IF ANY OF THE FOLLOWING SYMPTOMS OCCUR: * If your vaginal area becomes red, swollen, or more painful than what you have experienced in the hospital. * If your vaginal bleeding becomes foul smelling. * If your vaginal bleeding becomes more heavy than a period or if your bleeding changes from pink to bright red. However, you may pass an occasional walnut-sized clot once or twice for the first week . * If you experience a sharp, shooting pain in your calves. * If you discover a hard, reddened area on your breast or if you experience flu-like symptoms. DIET: * Eat regular, well-balanced meals. * Drink plenty of fluids daily. If , drink to thirst. Stand Alone Forms: General Discharge Information Follow-up/Referrals: Roseann Zhao MD [Primary Care Provider] - 4 Weeks Discharge Medications: New ibuprofen 600 mg Tablet 600 mg PO Q6H PRN (Reason: Cramping) Qty: 60 RF: 0 Continued Excedrin Migraine 250-250-65 mg tablet 1 tablet PO Q4-6H PRN (Reason: Pain (Scale Score 1-3)) RF: 0 zpcrmfxohe-bcgvrsnnwvqyq-rfmu [Fioricet] 50-300-40 mg capsule 1 cap PO Q8H PRN (Reason: pain) Qty: 20 RF: 0 omeprazole 20 mg tablet,delayed release (DR/EC) 20 mg PO BID Qty: 30 RF: 0 PNV,calcium 19-zrsa-fwxby acid [ Vitamin Plus Low Iro
== END 2020-05-21 13:55 | disposition home or self-care (01) | DRG 560 ==
LOC: ANHLDR 17:35 → ANHOB2 05-21 12:29 → ANHLDR 05-24 13:34 → ANHOB2 05-24 13:34
PROVIDERS: Obstetrics & Gynecology; Admitting Provider Student in an Organized Health Care Education/Training Program; PCP Student in an Organized Health Care Education/Training Program; Visit Provider Obstetrics & Gynecology
DX: O32.6XX0 Maternal care for compound presentation, not applicable or unspecified (principal); O71.82 Other specified trauma to perineum and vulva; O72.1 Other immediate postpartum hemorrhage; O99.824 Streptococcus B carrier state complicating childbirth; O99.02 Anemia complicating childbirth; D64.9 Anemia, unspecified; Z3A.38 38 weeks gestation of pregnancy; Z37.0 Single live birth
CPT/HCPCS: 36415; 84112; 85014; 85018; 85025; 85027; 85055; 86592; 86762; 86850; 86900; 86901; 87340; A9270; J0290; J2590; J2795; J3010; J7120

== ENCOUNTER 2021-02-22 17:27 | Emergency (ER) | payer OTHER, SELFPAY ==
--- NOTE | ~2021-02-22 | CT_ITS ---
EXAMINATION: CT abdomen pelvis w con DATE: 02/22/2021 21:00 INDICATION: Right lower quadrant pain. TECHNIQUE: Computed tomography (CT) of the abdomen and pelvis was performed with 100 cc Omnipaque 350 intravenous contrast. The dose-length product was 413.28 mGy-cm. Automated exposure control and iter ative reconstruction technique were employed. COMPARISON: None. FINDINGS: Lung bases are unremarkable. Heart size normal. No significant pleural or pericardial effus ion. No significant vascular abnormality. No lymphadenopathy. There is an IUD in the uterus. The liver, spleen, pancreas, adrenal glands and kidneys are unremarkable. Gallbladder is contracted. There is 2.5 cm left adnexal cyst, likely ovarian. There are mildly prominent ileocolic lymph nodes, likely reactive. The appendix is not well visualized. There is no pericecal inflammatory change to s uggest appendicitis. IMPRESSION: 1. No acute abdominal abnormality. 2: Left adnexal cyst measuring 2.5 cm, likely ovarian. Reviewed, dictated and finalized at location A.
[2021-02-22 18:00] VITALS: BP 120/72; BP 122/65; PULSE 88; PULSE 99; RESP 18; TEMP 36.7; O2SAT 100
[2021-02-22 18:32] LABS: Basophils Absolute Auto 0.1 K/mm3 (0.0-0.1); Basophils Percent Auto 1.1 % (0.2-1.2); Eosinophils Absolute Auto 0.2 K/mm3 (0-0.3); Eosinophils Percent Auto 2.1 % (0-4.4); Hematocrit 36.2 % (37.0-47.0); Hemoglobin 11.1 g/dL (12.0-15.0); Immature Granulocyte Absolute 0.04 K/mm3 (0.00-0.031); Immature Granulocyte Percent A 0.4 % (0-0.5); Lymphocytes Absolute Auto 1.73 K/mm3 (0.9-3.2); Lymphocytes Percent Auto 19.2 % (18.3-44.2); Mean Corpuscular HGB Conc 30.7 g/dl (32-36); Mean Corpuscular Hemoglobin 26.4 pg (26-34); Mean Corpuscular Volume 86.2 fl (80-100); Monocytes Absolute Auto 0.7 K/mm3 (0.1-0.6); Monocytes Percent Auto 7.2 % (2.6-8.5); Neutrophils Absolute Auto 6.3 K/mm3 (1.3-6.7); Platelet Count Result 385 k/mm3 (150-375); Red Cell Distribution Width 15.4 % (11.5-14.5)
[2021-02-22 18:35] VITALS: PULSE 99; RESP 18; TEMP 36.7; O2SAT 100
[2021-02-22 18:41] LABS: Add Urine Microscopic? YES; Appearance Urine Clear (Clear); Bilirubin Urine Negative (Negative); Color Urine Yellow (Yellow); Glucose Urine UA Negative (Negative); Ketones Urine Negative (Negative); Leukocyte Esterase Ur 1+ LEU/UL (Negative); Mucus Urine Rare /lpf; Nitrate Urine Negative (Negative); Protein Urine 2+ mg/dL (Negative); Squamous Epithelial Cell Urine Many /hpf (Few)
[2021-02-22 18:42] LABS: Blood Urine Negative (Negative); Specific Grav Ur 1.032 (1.001-1.035)
[2021-02-22 18:48] LABS: Alanine Aminotransferase 14 U/L (4-35); Alkaline Phosphatase 57 U/L (38-126); Anion Gap 6 mmol/L (8-16); Aspartate Amino Transferase 32 U/L (14-36); Bilirubin,Total 0.4 mg/dL (0.2-1.3); Blood Urea Nitrogen 19 mg/dL (7-17); Calcium 8.7 mg/dL (8.4-10.2); Carbon Dioxide 23 mmol/L (22-30); Chloride 106 mmol/L (98-107); Estimated CRCL calculation 91 ml/min; Estimated Glomerular Filt Rate > 60; Glucose 85 mg/dL (65-110); Lipase 182 U/L (23-300); Potassium 4.1 mmol/L (3.4-5.0); Sodium 135 mmol/L (137-145)
[2021-02-22] MEDS: SODIUM CHLORIDE 0.9% IV 1,000 ML 999 ML IV CONT (20:28)
--- NOTE | 2021-02-22 21:00 | PC.NURSE ---
Pelvic exam completed per Diogenes Maya PA-C. Specimens to lab, pt tolerated well.
--- NOTE | 2021-02-22 21:36 | ED.GENADULT ---
HPI - General Adult General Chief complaint: Abdominal Pain Stated complaint: R Sided Abd Pain Time Seen by Provider: 02/22/21 19:09 Source: patient and RN notes reviewed Mode of arrival: ambulatory Limitations: no limitations History of Present Illness HPI narrative: Patient is a 20-year-old female who presents to emergency department for evaluation of abdominal pain that began acutely today patient was at school when she began to have pain in the lower abdomen patient denies similar occurrence in the past she notes that she did note some small amount of vaginal odor would like to be treated and tested for STDs patient does not appear distressed upon arrival localizes the pain to the lower quadrants of the abdomen denies any vaginal bleeding or URI symptoms has not taken anything for symptom Related Data Home Medications Medication Instructions Recorded Confirmed pgrlnos-lpuujhcpcdaeg-penncdpi 250 1 tablet PO Q4-6H PRN 12/31/19 05/19/20 mg-250 mg-65 mg tablet Allergies Allergy/AdvReac Type Severity Reaction Status Date / Time shellfish derived Allergy Unknown unknown Verified 06/14/20 12:34 Review of Systems Review of Systems: All systems reviewed & are unremarkable except as noted in HPI and below PMFSH Past Medical History Medical History (Updated 02/22/21 @ 21:44 by Jozef Maya PA-C) Asthma Healthy female adult UTI in Surgical History Surgical History No pertinent past surgical history Social History Social History Smoking status: Never smoker Alcohol intake: never Substance use: never Substance use type: marijuana Gender identity (if verbalized by the patient): Female Spiritual care concerns: No Exam Narrative: GENERAL: Well-appearing, well-nourished, and in no acute distress. HEAD: Normocephalic, atraumatic. EYES: PERRLA and EOMI. ENT: Nares clear, no rhinorrhea or epistaxis. Mucous membranes moist. CHEST: Clear to auscultation. No respiratory distress. No wheezes rales or rhonchi HEART: Regular rate and rhythm. No murmur heard. Normal peripheral pulses. ABDOMEN: Soft, tenderness in the lower quadrants of the abdomen, nondistended, normal active bowel sounds. FEMALE GENITOURINARY: Small amount of white discharge in the vaginal vault otherwise normal exam EXTREMITIES: Normal range of motion. No edema. SKIN: Warm, dry, no rash. NEURO: No focal deficits. Alert and oriented x3. PSYCH: Normal mood and affect. Course Course Emergency Course: Patient found to have ovarian cyst we will follow-up for her vaginal culture she is afebrile nontoxic-appearing no distress she prefers to wait to find out her results on her vaginal cultures she is nontoxic-appearing nondistressed as noted noting that she is feeling better at this time and has also been given strict reasons to return and agrees to treatment plan Vital Signs Vital signs: Vital Signs Temperature 98.1 F 02/22/21 18:00 Pulse Rate 99 02/22/21 18:00 Respiratory Rate 18 02/22/21 18:00 Blood Pressure 122/65 02/22/21 18:00 Pulse Oximetry 100 02/22/21 18:00 Temperature 98.1 F 02/22/21 18:35 Pulse Rate 99 02/22/21 18:35 Respiratory Rate 18 02/22/21 18:35 Blood Pressure 122/65 02/22/21 18:00 Pulse Oximetry 100 02/22/21 18:35 Medical Decision Making [facility] Narrative Medical decision making narrative: Patient with lower abdominal pain found to have ovarian cyst also noted to request vaginal cultures which were obtained she will follow up on an outpatient basis for further evaluation and will return if symptoms worsen she will follow-up for further evaluation of her ovarian cyst she feels comfortable to follow with primary care for this and has close follow-up in the near future with her primary care doctor Vital Signs Vital Signs: Vital Signs Temperature 98.1 F 02/22/21 18
[2021-02-22 21:55] VITALS: BP 120/76; PULSE 88; RESP 20; TEMP 36.8; O2SAT 100
== END 2021-02-22 21:55 | disposition home or self-care (01) ==
PROVIDERS: Emergency Medicine Emergency Medical Services; Emergency Provider Family Medicine; PCP Physician Assistant
DX: N83.202 Unspecified ovarian cyst, left side (principal); J45.909 Unspecified asthma, uncomplicated
CPT/HCPCS: 36415; 74177; 80053; 81001; 81025; 83690; 85025; 87070; 87077; 87086; 87088; 87186; 87491; 87591; 87808; 96360; 99284; J7030; Q9967

== ENCOUNTER 2021-07-29 18:12 | Emergency (ER) | payer OTHER, SELFPAY ==
--- NOTE | ~2021-07-29 | US_ITS ---
EXAMINATION: US pelvic complete w TV DATE: 07/29/2021 21:53 INDICATION: Right adnexal pain. TECHNIQUE: Multiple transabdominal and transvaginal sonographic images of the pelvis were obtained. COMPARISON: CT abdomen and pelvis 02/22/2021 FINDINGS: TRANSABDOMINAL ULTRASOUND: The uterus measures 7.9 x 5.7 x 3.7 cm. There is no free fluid in the pelvis. TRANSVAGINAL ULTRASOUND: The endometrial complex measures 3 mm in thickness. There is an intrauterine device in expected posit ion. The right ovary measures 4.7 x 3.2 x 2.5 cm. The left ovary measures 3.8 x 2.6 x 1.7 cm. There i s normal vascular flow in the ovaries. IMPRESSION: 1. Intrauterine device in expected position. Reviewed, dictated and finalized at location A. [employer]
[2021-07-29 18:15] VITALS: BP 127/77; PULSE 62; RESP 18; TEMP 36.4; O2SAT 100
[2021-07-29 18:44] LABS: Add Urine Microscopic? YES; Amorphous Sediment Urine Few; Appearance Urine Cloudy (Clear); Bacteria Urine Trace /hpf; Bilirubin Urine Negative (Negative); Blood Urine Negative (Negative); Color Urine Yellow (Yellow); Glucose Urine UA Negative (Negative); Ketones Urine Negative (Negative); Leukocyte Esterase Ur Negative LEU/UL (Negative); Mucus Urine Rare /lpf; Nitrate Urine Negative (Negative); Protein Urine Negative (Negative); RBC Urine 0-2 /hpf (0-2); Specific Grav Ur 1.023 (1.001-1.035); Squamous Epithelial Cell Urine Many /hpf (Few); WBC Urine 0-3 /hpf
--- NOTE | 2021-07-29 19:51 | PC.NURSE ---
Pelvic Exam completed by ERP
--- NOTE | 2021-07-29 21:16 | PC.NURSE ---
Pt to US via w/c
--- NOTE | 2021-07-29 22:57 | ED.GENADULT ---
HPI - General Adult General Chief complaint: Urogenital-Female Stated complaint: right side pain Time Seen by Provider: 07/29/21 18:57 History of Present Illness HPI narrative: Patient is a 21-year-old female who presents ER with right lower quadrant abdominal pain. Ongoing for last 2 days. Radiates up the right side. Similar to previous UTI but no dysuria or urinary frequency urgency. No hematuria. Patient reports increased vaginal discharge recently without vaginal bleeding. No concerns for STI. Sexually active with one partner. No previous history of STD. Related Data Home Medications Medication Instructions Recorded Confirmed acidophilus-pectin, citrus 1 cap PO DAILY 07/29/21 07/29/21 [Acidophilus Probiotic] Allergies Allergy/AdvReac Type Severity Reaction Status Date / Time shellfish derived Allergy Unknown unknown Verified 06/14/20 12:34 Review of Systems Review of Systems: All systems reviewed & are unremarkable except as noted in HPI and below Constitutional: Constitutional: Denies chills, Denies fever(s) and Denies weakness Cardiovascular: Cardiovascular: Denies chest pain, Denies rapid heart rate and Denies radiating jaw, neck or arm pain Respiratory: Respiratory: Denies cough, Denies dyspnea and Denies wheezing Gastrointestinal: Gastrointestinal: Reports abdominal pain, Denies diarrhea, Denies nausea and Denies vomiting Genitourinary: Genitourinary: Denies abnormal vaginal bleeding, Denies nocturia, Denies dysuria, Denies urinary incontinence and Reports vaginal discharge [facility] Past Medical History Medical History (Updated 07/29/21 @ 23:00 by Abhijit Major MD) Asthma Healthy female adult UTI in Surgical History Surgical History No pertinent past surgical history Social History Social History Smoking status: Never smoker Alcohol intake: never Substance use: never Substance use type: marijuana Gender identity (if verbalized by the patient): Female Spiritual care concerns: No Exam Narrative: GENERAL: Well-appearing, well-nourished, and in no acute distress. HEAD: Normocephalic, atraumatic. CHEST: Clear to auscultation. No respiratory distress. HEART: Regular rate and rhythm. Normal peripheral pulses. ABDOMEN: Soft, nontender, nondistended. : Normal external genitalia, moderate white discharge on exam, normal-appearing cervix without erythema, no bleeding. Mild discomfort right adnexal region. EXTREMITIES: Normal range of motion. No edema. SKIN: Warm, dry, no rash. NEURO: Alert and oriented x3. PSYCH: Normal mood and affect. Course Course Emergency Course: Patient informed results. Suspect ovarian cyst with rupture given the irregularity seen on ultrasound. We will also treat for BV. Discharge home. Vital Signs Vital signs: Vital Signs Temperature 97.5 F L 07/29/21 18:15 Pulse Rate 62 07/29/21 18:15 Respiratory Rate 18 07/29/21 18:15 Blood Pressure 127/77 07/29/21 18:15 Pulse Oximetry 100 07/29/21 18:15 Temperature 97.5 F L 07/29/21 18:15 Pulse Rate 62 07/29/21 18:15 Respiratory Rate 18 07/29/21 18:15 Blood Pressure 127/77 07/29/21 18:15 Pulse Oximetry 100 07/29/21 18:15 Medical Decision Making Vital Signs Vital Signs: Vital Signs Temperature 97.5 F L 07/29/21 18:15 Pulse Rate 62 07/29/21 18:15 Respiratory Rate 18 07/29/21 18:15 Blood Pressure 127/77 07/29/21 18:15 Pulse Oximetry 100 07/29/21 18:15 Temperature 97.5 F L 07/29/21 18:15 Pulse Rate 62 07/29/21 18:15 Respiratory Rate 18 07/29/21 18:15 Blood Pressure 127/77 07/29/21 18:15 Pulse Oximetry 100 07/29/21 18:15 Lab Data Labs: Lab Results 07/29/21 07/29/21 07/29/21 Range/Units 18:32 19:56 19:56 Urine Color Yellow (Yellow) Urine Appearance Cloudy H (Clear) Urine pH 7.0
[2021-07-29 23:08] VITALS: PULSE 68; RESP 14; O2SAT 100
== END 2021-07-29 23:08 | disposition home or self-care (01) ==
PROVIDERS: Emergency Medicine; Emergency Provider Emergency Medicine; PCP Physician Assistant
DX: N83.209 Unspecified ovarian cyst, unspecified side (principal); N76.0 Acute vaginitis; J45.909 Unspecified asthma, uncomplicated; Z97.5 Presence of (intrauterine) contraceptive device; Z87.440 Personal history of urinary (tract) infections
CPT/HCPCS: 76830; 76856; 81001; 81025; 87070; 87491; 87591; 87808; 99284

== ENCOUNTER 2022-01-29 17:23 | Emergency (ER) | payer OTHER, SELFPAY ==
[2022-01-29 17:38] VITALS: BP 122/73; PULSE 85; RESP 16; TEMP 36.6; O2SAT 100
[2022-01-29] MEDS: cefTRIAXone 1 GM VIAL 0.5 GM IM (20:36)
--- NOTE | 2022-01-29 21:04 | ED.GENADULT ---
HPI - General Adult General Chief complaint: Unspecified Stated complaint: Sore throat, stomach pain Time Seen by Provider: 01/29/22 18:31 History of Present Illness HPI narrative: Patient is a 21-year-old female who presents ER with multiple concerns. Main concern is possible STD exposure. She was called by an ex-boyfriend and told that he tested positive for gonorrhea and that she was exposed. She reports she last slept with this individual at to the end of October or early November. She has had no vaginal discharge. She reports chronic pelvic pain related to an ovarian cyst that is unchanged. No urinary frequency urgency or dysuria. No diarrhea. Related Data Home Medications Medication Instructions Recorded Confirmed acidophilus 100 million 1 cap PO DAILY 07/29/21 07/29/21 cell-pectin, citrus 10 mg capsule Allergies Allergy/AdvReac Type Severity Reaction Status Date / Time shellfish derived Allergy Unknown unknown Verified 06/14/20 12:34 [facility] Past Medical History Medical History (Updated 01/30/22 @ 00:01 by Fatoumata Gregorio) Asthma Healthy female adult UTI in Surgical History Surgical History No pertinent past surgical history Social History Social History Smoking status: Never smoker Alcohol intake: never Substance use: never Substance use type: marijuana Gender identity (if verbalized by the patient): Female Spiritual care concerns: No Exam Narrative: GENERAL: Well-appearing, well-nourished, and in no acute distress. HEAD: Normocephalic, atraumatic. CHEST: Clear to auscultation. No respiratory distress. HEART: Regular rate and rhythm. Normal peripheral pulses. ABDOMEN: Soft, nontender, nondistended. : Normal external genitalia. Well appearing cervix with closed cervical os. No bleeding or discharge noted. No CMT. EXTREMITIES: Normal range of motion. No edema. SKIN: Warm, dry, no rash. NEURO: Alert and oriented x3. PSYCH: Normal mood and affect. Course Course Emergency Course: Patient resting comfortably. Informed of treatment plan. Received ceftriaxone here. Discharge with doxycycline and metronidazole. COVID pending as well. Vital Signs Vital signs: Vital Signs Temperature 97.9 F 01/29/22 17:38 Pulse Rate 85 08/15/22 17:38 Respiratory Rate 16 01/29/22 17:38 Blood Pressure 122/73 01/29/22 17:38 Pulse Oximetry 100 01/29/22 17:38 Oxygen Delivery Room Air 01/29/22 17:38 Temperature 97.9 F 01/29/22 17:38 Pulse Rate 80 01/29/22 21:17 Respiratory Rate 16 01/29/22 21:17 Blood Pressure 122/68 01/29/22 21:17 Pulse Oximetry 99 01/29/22 21:17 Oxygen Delivery Room Air 01/29/22 17:38 Medical Decision Making Vital Signs Vital Signs: Vital Signs Temperature 97.9 F 01/29/22 17:38 Pulse Rate 85 01/29/22 17:38 Respiratory Rate 16 01/29/22 17:38 Blood Pressure 122/73 01/29/22 17:38 Pulse Oximetry 100 01/29/22 17:38 Oxygen Delivery Room Air 01/29/22 17:38 Temperature 97.9 F 01/29/22 17:38 Pulse Rate 80 01/29/22 21:17 Respiratory Rate 16 01/29/22 21:17 Blood Pressure 122/68 01/29/22 21:17 Pulse Oximetry 99 01/29/22 21:17 Oxygen Delivery Room Air 01/29/22 17:38 Lab Data Labs: Lab Results 01/29/22 01/29/22 01/29/22 Range/Units 20:10 20:10 21:07 C.trachomatis RNA (TMA) Pending N.gonorrhoeae RNA (TMA) Pending SARS-CoV-2 RNA (RT-PCR) Negative Trichomonas Direct ID Negative (Negative) Discharge Plan Discharge Clinical Impression: STD exposure, Person under investigation for COVID-19 Patient Disposition: Home, Self-Care Condition: Stable Instructions: Sexually Transmitted Diseases (ED), COVID-19 (Coronavirus Disease 2019) (ED) Additional Instructions: You were treated for sexually transmitted infection. You a
[2022-01-29 21:17] VITALS: BP 122/68; PULSE 80; RESP 16; O2SAT 99
[2022-01-29 21:49] LABS: SARS-CoV-2 RNA PCR Negative
== END 2022-01-29 21:18 | disposition home or self-care (01) ==
PROVIDERS: Emergency Provider Emergency Medicine; PCP Physician Assistant
DX: Z20.2 Contact with and (suspected) exposure to infections with a predominantly sexual mode of transmission (principal); Z20.822 Contact with and (suspected) exposure to COVID-19; J45.909 Unspecified asthma, uncomplicated
CPT/HCPCS: 87070; 87491; 87591; 87808; 96372; 99283; C9803; J0696; U0003; U0005